=== PATIENT | male | born 1940 | race Caucasian/White ===

== ENCOUNTER 2019-05-10 00:09 | Day surgery (SDC) | payer MEDICARE, SELFPAY ==
[2019-05-09 15:05] VITALS: BMI 34.0
[2019-05-10 07:05] VITALS: BP 145/79; PULSE 66; RESP 16; TEMP 36.2; O2SAT 94
--- NOTE | 2019-05-10 07:11 | WPDANESEPPF ---
Anes - Initial Pre Proc Eval Procedure: Operation Date: 05/10/19 08:00 Proposed Procedures p Screening Colonoscopy - Jitendra Ayala MD Date/Time: 05/10/19 07:11 Surgeon: Jitendra Ayala MD Pre Op Diagnosis: Neoplasm Screening Patient Data Age: 78 Gender: M Height: 1.75 m Weight: 104.5 kg Last Vital Signs Temp 36.2 C L 05/10/19 07:05 Pulse 66 05/10/19 07:05 Resp 16 05/10/19 07:05 BP 145/79 H 05/10/19 07:05 Pulse Ox 94 05/10/19 07:05 Allergies Allergy/AdvReac Type Severity Reaction Status Date / Time No Known Allergies Allergy Verified 05/10/19 07:03 Home Medications Medication Instructions Recorded Confirmed Type atorvastatin 20 mg tablet 20 mg PO DAILY 02/05/19 05/09/19 History fluticasone propionate 50 2 spray NASAL DAILY #18.2 ml 02/05/19 05/09/19 Rx mcg/actuation nasal spray,suspension glipizide 5 mg tablet 5 mg PO BID 02/05/19 05/09/19 History metformin 500 mg tablet 2,000 mg PO HS 02/05/19 05/09/19 History famotidine 20 mg tablet 20 mg PO BID #60 tablet 02/23/19 05/09/19 Rx peg 3350-electrolytes 236 240 ml PO Q10M #4000 ml 04/03/19 Rx gram-22.74 gram-6.74 gram-5.86 gram solution lisinopril 10 mg PO DAILY 05/09/19 05/09/19 History Patient hx anesthesia problems: none Family hx anesthesia problems: none PMFSH Past Medical History Medical History (Updated 04/06/19 @ 09:56 by Cammy Carson DO) Chronic GERD COPD with asthma Dyslipidemia Type 2 diabetes mellitus with microalbuminuria, without long-term current use of insulin Social History Social History Smoking status: Never smoker Smoking end date: 02/28/06 Alcohol intake: never Substance use: never Substance use type: does not use Gender identity (if verbalized by the patient): Male Spiritual care concerns: No Agree to blood products: Yes Anes - Eval Final PreProcedure Day of Procedure 05/10/19 07:11 Patient weight: obese Heart: regular rate and rhythm Lungs: clear to auscultation and normal air movement Airway: Mallampati scale class II Neurological: alert and oriented Last oral intake: >/= 8 hours ASA classification: III Emergent: no Anesthetic plan: proceed Anesthesia type and monitoring: general GIVS and standard monitoring Informed Consent: The patient's anesthetic plan and its attendant risks and benefits were discussed with the patient/family/POA. Questions were solicited and answers provided to the satisfaction of the patient/family/POA.
[2019-05-10] MEDS: LACTATED RINGERS 1,000 ML 150 ML IV CONT (07:21)
[2019-05-10 07:28] LABS: Glucose Point of Care 165 (65-105)
--- NOTE | 2019-05-10 08:07 | PM.HPGS ---
History of Present Illness History of Present Illness Consent: Risks, benefits, and alternatives have been discussed and questions answered. Patient agrees to proceed with procedure. Chief complaint: Neoplasm Screening Narrative: Reagan Akins is a 78 year old male here for screening colonoscopy, last one about 10 years ago or longer Review of Systems Constitutional: Constitutional: Denies headache(s) and Denies weakness Eyes: Eyes: Denies blurry vision ENT: Reports Normal hearing present, Denies headache(s) and Denies neck pain Cardiovascular: Cardiovascular: Denies chest pain and Denies dyspnea Respiratory: Respiratory: Denies dyspnea Gastrointestinal: Gastrointestinal: Reports no additional gastrointestinal complaints Genitourinary: Genitourinary: Denies dysuria Musculoskeletal: Musculoskeletal: Denies neck pain Integumentary/Breasts: Skin/Breast: Denies dry skin Neurologic: Reports Normal hearing present, Denies headache(s) and Denies weakness Psychiatric: Psychiatric: Denies anxiety Endocrine: Endocrine: Denies change in body appearance Hematologic/Lymphatic: Hematologic/Lymphatic: Denies easy bleeding Allergic/Immunologic: Allergic/Immunologic: Denies urticaria PMF Past Medical History Medical History (Updated 04/06/19 @ 09:56 by Cammy Carson DO) Chronic GERD COPD with asthma Dyslipidemia Type 2 diabetes mellitus with microalbuminuria, without long-term current use of insulin Social History Social History Smoking status: Never smoker Smoking end date: 02/28/06 Alcohol intake: never Substance use: never Substance use type: does not use Gender identity (if verbalized by the patient): Male Spiritual care concerns: No Agree to blood products: Yes Meds Home Medications and Allergies Home Medications Medication Instructions Recorded Confirmed Type atorvastatin 20 mg tablet 20 mg PO DAILY 02/05/19 05/09/19 History fluticasone propionate 50 2 spray NASAL DAILY #18.2 ml 02/05/19 05/09/19 Rx mcg/actuation nasal spray,suspension glipizide 5 mg tablet 5 mg PO BID 02/05/19 05/09/19 History metformin 500 mg tablet 2,000 mg PO HS 02/05/19 05/09/19 History famotidine 20 mg tablet 20 mg PO BID #60 tablet 02/23/19 05/09/19 Rx peg 3350-electrolytes 236 240 ml PO Q10M #4000 ml 04/03/19 Rx gram-22.74 gram-6.74 gram-5.86 gram solution lisinopril 10 mg PO DAILY 05/09/19 05/09/19 History Allergies Allergy/AdvReac Type Severity Reaction Status Date / Time No Known Allergies Allergy Verified 05/10/19 07:03 Vital Signs Vital Signs - 24 hr 05/10/19 07:05 Temperature 97.2 F L Pulse Rate 66 Respiratory Rate 16 Blood Pressure 145/79 H Pulse Oximetry 94 Exam Const: General: comfortable and no acute distress HENMT: General nose exam: Normal nares present Eyes: General: appearance normal, both eyes and all related structures Neck: Neck: no JVD Resp: Auscultation: clear to auscultation bilaterally Cardio: Rate: regular rate Rhythm: regular rhythm GI: Inspection: non-distended GI Palp: Yes Soft to palpation Skin: General skin exam: normal color Neuro: General: gait normal Speech: normal speech Extrem: General: normal to inspection Psych: Mental Status: mental status grossly normal Assessment and Plan Assessment and plan (1) Screening for colon cancer: Code(s): Z12.11 - Encounter for screening for malignant neoplasm of colon Status: Acute Assessment and Plan: will proceed with colonoscopy (2) Type 2 diabetes mellitus with microalbuminuria, without long-term current use of insulin: Code(s): E11.29 - Type 2 diabetes mellitus with other diabetic kidney complication; R80.9 - Proteinuria, unspecified Status: Acute
[2019-05-10 08:31] VITALS: BP 113/69; PULSE 54; RESP 16; O2SAT 97
[2019-05-10 08:41] VITALS: BP 126/73; PULSE 57; RESP 16; O2SAT 96
[2019-05-10 08:51] VITALS: BP 140/64; PULSE 65; RESP 16; O2SAT 98
== END 2019-05-10 08:57 | disposition home or self-care (01) ==
PROVIDERS: PCP Family Medicine; Visit Provider Internal Medicine Gastroenterology
PROC: 0DJD8ZZ Inspection of Lower Intestinal Tract, Via Natural or Artificial Opening Endoscopic (ICD-10-PCS; CPT 45378; principal; 2019-05-10 08:00)
DX: Z12.11 Encounter for screening for malignant neoplasm of colon (principal); D12.0 Benign neoplasm of cecum; D12.8 Benign neoplasm of rectum; K57.30 Diverticulosis of large intestine without perforation or abscess without bleeding; E11.69 Type 2 diabetes mellitus with other specified complication; Z79.84 Long term (current) use of oral hypoglycemic drugs; R80.9 Proteinuria, unspecified; E78.5 Hyperlipidemia, unspecified; J44.9 Chronic obstructive pulmonary disease, unspecified; K21.9 Gastro-esophageal reflux disease without esophagitis; E66.9 Obesity, unspecified; Z68.34 Body mass index [BMI] 34.0-34.9, adult
CPT/HCPCS: 45385; 88305; J2704; J7120

== ENCOUNTER 2019-06-04 15:19 | Emergency (ER) | payer MEDICARE, SELFPAY ==
--- NOTE | ~2019-06-04 | XR_ITS ---
EXAMINATION: XR chest 1V portable INDICATION: Shortness of breath and fever TECHNIQUE: Portable AP chest at 1540 hours COMPARISON: 04/18/2018, 04/04/2017 FINDINGS: The lungs are free of acute opacities. There is no pleural effusion or pneumothorax. The ca rdiomediastinal silhouette is normal. IMPRESSION: 1. No acute cardiopulmonary abnormality. Reviewed, dictated and finalized at location A.
[2019-06-04 15:25] VITALS: BP 161/97; PULSE 69; RESP 20; TEMP 36.8; O2SAT 97
[2019-06-04 15:31] VITALS: PULSE 67
--- NOTE | 2019-06-04 15:32 | ECG_ITS ---
Measurements Intervals [place] Rate: 66 P: 52 MN: 171 QRS: 12 QRSD: 116 T: 29 QT: 413 QTc: 434 Interpretive Statements SINUS RHYTHM VENTRICULAR PREMATURE COMPLEX INTRAVENTRICULAR CONDUCTION DELAY BORDERLINE T WAVE ABNORMALITY- INFERIOR LEADS BORDERLINE ECG Electronically Signed On 06-04-2019 19:12:51 CDT by Jah Ambrose D.O.
--- NOTE | 2019-06-04 15:32 | ED.SOB ---
HPI - SOB/Dyspnea General Chief Complaint: Shortness of Breath/Dyspnea Stated Complaint: fever, shaking, eye twitching, short of breath. Time Seen by Provider: 06/04/19 15:26 Source: patient Mode of arrival: ambulatory Limitations: no limitations History of Present Illness HPI Narrative: Patient is a 78 year old male who presents to the emergency department with complaints of shortness of breath that started today. Patient reports a fever of 103F that started at 11AM but it went away. He also reports trouble urinating today and feeling gassy. He denies having abdominal pain but states that his lower abdomen was irritating him and burning. Patient reports feeling lightheaded and almost passed out. He states that he had an episode yesterday and today that lasted 1-1.5 hours ago. He got better when he sat down and took a nap. Patient denies having any sores but he reports that he has a cut on his right hand that he got on Tuesday (3 days ago). He does not use any inhalers at home and uses a nasal spray twice a day. Patient notes that he has a history of pneumonia but states that he has never been intubated. He denies a history of congestive heart failure and states that he does not normally have ankle swelling. Patient quit smoking 15 years ago and he quit drinking 10 years ago. He has a surgical history of bilateral rotator cuff surgery, bilateral hip replacements, and a neck fusion. 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 MD elicited complaint: shortness of breath Onset (ago): day(s) (today) Timing: constant Associated symptoms: fever (103F), syncope (near), lightheadedness and other (lower abdominal burning) Related Data Home Medications Medication Instructions Recorded Confirmed atorvastatin 20 mg tablet 20 mg PO DAILY 02/05/19 05/09/19 glipizide 5 mg tablet 5 mg PO BID 02/05/19 05/09/19 metformin 500 mg tablet 2,000 mg PO HS 02/05/19 05/09/19 Allergies Allergy/AdvReac Type Severity Reaction Status Date / Time No Known Allergies Allergy Verified 06/04/19 15:34 Review of Systems Review of Systems: All systems reviewed & are unremarkable except as noted in HPI and below Constitutional: Constitutional: Reports fever(s) (103F) Cardiovascular: Cardiovascular: Reports lightheadedness Respiratory: Respiratory: Reports dyspnea Gastrointestinal: Gastrointestinal: Denies abdominal pain and Reports other (lower abdominal burning and irritation, gassy) Genitourinary: Genitourinary: Reports other (trouble urinating) Neurologic: Reports syncope (near) [facility] Past Medical History Medical History (Updated 06/04/19 @ 17:47 by Regine Bloom MD) Chronic GERD COPD with asthma Dyslipidemia Type 2 diabetes mellitus with microalbuminuria, without long-term current use of insulin Surgical History Surgical History (Updated 06/04/19 @ 16:07 by Bianca Cm) H/O bilateral hip replacements H/O cervical spinal arthrodesis H/O repair of rotator cuff bilaterally Social History Social History (Updated 06/04/19 @ 16:08 by Bianca Cm) Smoking status: Former smoker Smoking end date: 02/28/06 Alcohol intake: former Substance use: never Substance use type: does not use Living arrangements: with family Gender identity (if verbalized by the patient): Male Spiritual care concerns: No Agree to blood products: Yes Exam Const: Orientation/consciousness: patient oriented x3 (alert) Eyes: General: appearance normal, both eyes and all related structures (blue) Resp: Effort & Inspection: normal respiratory effort Auscultation: clear to auscultation bilaterally and no wheezes Cardio: Jugular venous distension: no JVD Rate: regular rate Rhythm: regular rhythm Heart sounds: no murmurs Peripheral pulses: radial pulses present GI: GI Palp: No abdominal tenderness Skin: Trauma: laceration (1/2 inch cut with scab and no erythema surrounding) Neuro: General: patient oriented
[2019-06-04 15:44] LABS: Basophils Percent Auto 0.3 % (0.2-1.2); Eosinophils Absolute Auto 0.1 K/mm3 (0-0.3); Eosinophils Percent Auto 1.2 % (0-4.4); Hematocrit 41.3 % (42.0-52.0); Hemoglobin 13.7 g/dL (14.0-18.0); Immature Granulocyte Absolute 0.09 K/mm3 (0.00-0.031); Immature Granulocyte Percent A 1.4 % (0-0.5); Lymphocytes Absolute Auto 1.41 K/mm3 (0.9-3.2); Lymphocytes Percent Auto 21.5 % (18.3-44.2); Mean Corpuscular HGB Conc 33.2 g/dl (32-36); Mean Corpuscular Hemoglobin 31.4 pg (26-34); Mean Corpuscular Volume 94.7 fl (80-100); Mean Platelet Volume 10.3 fl (7.4-10.4); Monocytes Absolute Auto 0.5 K/mm3 (0.1-0.6); Monocytes Percent Auto 7.6 % (2.6-8.5); Neutrophils Absolute Auto 4.5 K/mm3 (1.3-6.7); Platelet Count Result 196 k/mm3 (150-375); Red Blood Count 4.36 M/mm3 (4.6-6.20); Red Cell Distribution Width 13.2 % (11.5-14.5); White Blood Count 6.6 K/mm3 (4.5-10.0)
[2019-06-04 15:55] LABS: Potassium 4.7 mmol/L (3.4-5.0)
[2019-06-04 16:01] LABS: Blood Urea Nitrogen 19 mg/dL (9-20); Calcium 9.3 mg/dL (8.4-10.2); Carbon Dioxide 27 mmol/L (22-30); Chloride 107 mmol/L (98-107); Estimated CRCL calculation 70 ml/min; Estimated Glomerular Filt Rate > 60; Glucose 283 mg/dL (75-110); Sodium 139 mmol/L (137-145)
--- NOTE | 2019-06-04 16:31 | PC.NURSE ---
PT FRIEND AT [facility]TA[facility] STATES HE CAN TAKE PT HOME IF NEED BE: KUNAL [phone].
[2019-06-04 16:36] VITALS: BP 117/66; PULSE 60; RESP 21; O2SAT 96
[2019-06-04 16:38] LABS: Add Urine Microscopic? YES; Appearance Urine Clear (Clear); Bilirubin Urine Negative (Negative); Blood Urine Negative (Negative); Color Urine Yellow (Yellow); Glucose Urine UA 3+ mg/dL (Negative); Ketones Urine Trace mg/dL (Negative); Leukocyte Esterase Ur Negative LEU/UL (Negative); Mucus Urine Rare /lpf; Nitrate Urine Negative (Negative); Protein Urine 1+ mg/dL (Negative); RBC Urine 0-2 /hpf (0-2); Specific Grav Ur 1.021 (1.001-1.035); Squamous Epithelial Cell Urine Rare /hpf (Few); Urobilinogen Urine Negative mg/dL (<2.0); WBC Urine 0-3 /hpf
[2019-06-04 16:49] LABS: Lactic Acid 1.6 mmol/L (0.7-2.1)
[2019-06-04 16:49] LABS: NT Pro B Type Natriuretic Pept 380 PG/ML (5-100); Troponin I < 0.012 ng/mL (0.000-0.034)
[2019-06-04] MEDS: FUROSEMIDE INJ 40 MG/4 ML VIAL IV PUSH (17:14)
[2019-06-04 17:15] VITALS: BP 149/77; PULSE 60; RESP 15; O2SAT 96
[2019-06-04 17:58] VITALS: BP 143/91; PULSE 67; RESP 19; O2SAT 98
== END 2019-06-04 18:00 | disposition home or self-care (01) ==
PROVIDERS: Emergency Provider Emergency Medicine; PCP Family Medicine
DX: I50.9 Heart failure, unspecified (principal); E11.65 Type 2 diabetes mellitus with hyperglycemia; R55 Syncope and collapse; R50.81 Fever presenting with conditions classified elsewhere; K21.9 Gastro-esophageal reflux disease without esophagitis; E78.5 Hyperlipidemia, unspecified; E11.69 Type 2 diabetes mellitus with other specified complication; Z79.84 Long term (current) use of oral hypoglycemic drugs; R80.9 Proteinuria, unspecified; Z87.891 Personal history of nicotine dependence; Z96.643 Presence of artificial hip joint, bilateral; Z98.1 Arthrodesis status; I49.3 Ventricular premature depolarization; I45.9 Conduction disorder, unspecified; R94.31 Abnormal electrocardiogram [ECG] [EKG]
CPT/HCPCS: 36415; 71045; 80048; 81001; 83605; 83880; 84484; 85025; 87040; 93005; 96374; 99284; J1940

== ENCOUNTER 2019-07-03 07:48 | Outpatient (CLI) | payer MEDICARE, SELFPAY ==
--- NOTE | 2019-07-03 08:00 | ECHO_ITS ---
Patient Info Name: Reagan Akins Age: 79 years : 1940 Gender: Male Ht: 69 in Wt: 205 lbs BSA: 2.15 m2 HR: 61 bpm BP: 124 / 79 mmHg Technical Quality: Fair Exam Date: 07/03/2019 8:08 AM Exam Location: [facility] Patient Status: Outpatient Admit Date: 07/03/2019 Staff Ordering Physician: Cammy Carson DO Alcohol And Drug Counselor: Ifeoma Shepherd RDCS Attending Provider: Cammy Carson DO Referring Physician: Yamileth GARCIA; Exam Type: CA echo doppler color flow Study Info Indications R60.9 - Edema, unspecified Complete two-dimensional, color flow and Doppler transthoracic echocardiogram is performed. Summary 1. Left ventricular chamber dimension is normal. 2. Left ventricular systolic function is normal, estimated at 55-60%. 3. The left ventricular diastolic function is grade I diastolic dysfunction. 4. E/e' 6 is not elevated. 5. There is moderate aortic valve sclerosis. 6. The mitral valve has moderately calcified annulus. 7. There is trace mitral valve regurgitation. 8. No pulmonary hypertension, estimated pulmonary arterial systolic pressure is 24 mmHg. 9. There is mild pulmonic regurgitation. Left Ventricle E/e' 6 is not elevated. Left ventricular chamber dimension is normal. Left ventricular systolic function is normal, estimated at 55-60%. The left ventricular diastolic function is grade I diastolic dysfunction. Right Ventricle Right ventricular chamber dimension is normal. Right ventricular systolic function is normal. Left Atria Left atrial chamber dimension is normal. Right Atria Right atrial chamber dimension is normal. Aortic Valve The aortic valve is trileaflet. There is moderate aortic valve sclerosis. There is no aortic valve stenosis. There is no aortic valve regurgitation. Pulmonic Valve There is mild pulmonic regurgitation. Mitral Valve The mitral valve has moderately calcified annulus. There is no mitral valve stenosis. There is trace mitral valve regurgitation. Tricuspid Valve There is no tricuspid valve regurgitation. No pulmonary hypertension, estimated pulmonary arterial systolic pressure is 24 mmHg. Pericardium/Pleural There is no pericardial effusion. Inferior Vena Cava Normal inferior vena cava with >50% collapse upon inspiration consistent with normal right atrial pressure, 5 mmHg. Aorta The aortic root size at the sinus of Valsalva is normal. Left Ventricular Outflow Tract Name Value Normal LVOT 2D LVOT Diameter 2.0 cm LVOT Doppler LVOT Peak Velocity 143 cm/s LVOT Peak Gradient 8 mmHg LVOT Mean Gradient 5 mmHg LVOT VTI 30 cm LVOT VTI/AV VTI Ratio 1.0 LVOT Stroke Volume 94 ml LVOT CO 5.9 l/min LVOT CI 2.7 l/min/m2 Pulmonic Valve Name Value Normal
[2019-07-03 08:24] LABS: Alanine Aminotransferase 19 U/L (4-50); Albumin Level 4.5 g/dL (3.5-5.1); Alkaline Phosphatase 65 U/L (38-126); Aspartate Amino Transferase 24 U/L (17-59); Bilirubin,Total 0.5 mg/dL (0.2-1.3); Blood Urea Nitrogen 21 mg/dL (9-20); Calcium 9.3 mg/dL (8.4-10.2); Carbon Dioxide 24 mmol/L (22-30); Chloride 108 mmol/L (98-107); Estimated Glomerular Filt Rate > 60; Glucose 262 mg/dL (75-110); Potassium 4.7 mmol/L (3.4-5.0); Sodium 139 mmol/L (137-145)
== END 2019-07-03 07:49 | disposition home or self-care (01) ==
PROVIDERS: PCP Family Medicine; Visit Provider Family Medicine
DX: R60.9 Edema, unspecified (principal); E11.29 Type 2 diabetes mellitus with other diabetic kidney complication; R80.9 Proteinuria, unspecified; E78.5 Hyperlipidemia, unspecified
CPT/HCPCS: 36415; 80053; 83036; 84443; 93306

== ENCOUNTER 2019-10-17 09:40 | Emergency (ER) | payer MEDICARE, SELFPAY ==
[2019-10-17 09:51] VITALS: BP 130/63; PULSE 77; RESP 18; TEMP 36.6; O2SAT 98
--- NOTE | 2019-10-17 09:56 | ED.GENADULT ---
HPI - General Adult General Chief complaint: Nausea/Vomiting/Diarrhea Stated complaint: CONSTIPATION Time Seen by Provider: 10/17/19 09:51 Source: patient Mode of arrival: ambulatory Limitations: no limitations and other (Little hard of hearing) History of Present Illness HPI narrative: Patient presents with dizziness and lightheadedness. He had an event 3 days ago where he ate at a restaurant and thinks he had food poisoning. He only ate 1 of the 2 pork chop. Then he had severe bloating and abdominal discomfort. Yesterday he took some orange laxatives, and had profound diarrhea with it. The bloating and abdominal pain resolved. Now he feels dizzy and lightheaded. He has a history of borderline hypertension. Once his doctor tried a blood pressure pill but it bottomed out. He has type 2 diabetes which he takes oral medication to control. He has had surgery on both shoulders replacements on both hips and cervical fusion. Does not smoke cigarettes, does not drink alcohol, does not do drugs. Onset (ago): day(s) Location: head Radiation: non-radiation Severity: moderate Related Data Home Medications Medication Instructions Recorded Confirmed metformin 500 mg tablet 2,000 mg PO HS 02/05/19 05/09/19 furosemide 40 mg tablet 40 mg PO .QOD tablet 06/28/19 06/28/19 Allergies Allergy/AdvReac Type Severity Reaction Status Date / Time No Known Allergies Allergy Verified 10/17/19 09:56 Review of Systems Review of Systems: Narrative: CONSTITUTIONAL: Denies fever, chills, or sweats. ENT: Denies rhinorrhea, congestion, sore throat, or otalgia. CARDIOVASCULAR: Denies chest pain, palpitations, or edema. RESPIRATORY: Denies cough or dyspnea. GASTROINTESTINAL: He had abdominal pain, nausea, diarrhea. SKIN: Denies rash or itching. MUSCULOSKELETAL: Denies back pain, joint pain, or myalgia. NEUROLOGIC: Denies headache, numbness, or weakness. Just dizzy. All systems reviewed & are unremarkable except as noted in HPI and below PMFSH Past Medical History Medical History CHF (congestive heart failure) Chronic GERD COPD with asthma Dyslipidemia Type 2 diabetes mellitus with microalbuminuria, without long-term current use of insulin Surgical History Surgical History H/O bilateral hip replacements H/O cervical spinal arthrodesis H/O repair of rotator cuff bilaterally Social History Social History Smoking status: Former smoker Smoking end date: 02/28/06 Alcohol intake: former Substance use: never Substance use type: does not use Gender identity (if verbalized by the patient): Male Spiritual care concerns: No Agree to blood products: Yes Exam Narrative: Exam Narrative: GENERAL: Well-appearing, well-nourished, and in no acute distress. Little hard of hearing. HEAD: Normocephalic, atraumatic. EYES: PERRLA and EOMI. ENT: Nares clear, no rhinorrhea or epistaxis. Mucous membranes moist. NECK: Supple. CHEST: Clear to auscultation. No respiratory distress. HEART: Regular rate and rhythm. No murmur heard. Normal peripheral pulses. ABDOMEN: Soft, nontender, nondistended, normal active bowel sounds. EXTREMITIES: Normal range of motion. No edema. SKIN: Warm, dry, no rash. NEURO: No focal deficits. Alert and oriented x3. PSYCH: Normal mood and affect. Course Reevaluation(s) Reevaluation #1: Patient is much improved and is ready to go home Date: 10/17/19 Time: 14:33 Vital Signs Vital signs: Vital Signs Temperature 97.9 F 10/17/19 09:51 Pulse Rate 77 10/17/19 09:51 Respiratory Rate 18 10/17/19 09:51 Blood Pressure 130/63 10/17/19 09:51 Pulse Oximetry 98 10/17/19 09:51 Temperature 97.8 F 10/17/19 14:41 Pulse Rate 87 10/17/19 14:41 Respiratory Rate 18 10/17/19 14:41 Blood Pressure 129/74 10/17/19 14:41 Pulse Oximetry
[2019-10-17] MEDS: SODIUM CHLORIDE 0.9% IV 1,000 ML 999 ML IV CONT (09:59)
[2019-10-17 10:08] LABS: Basophils Percent Auto 0.2 % (0.2-1.2); Eosinophils Percent Auto 0.2 % (0-4.4); Hematocrit 43.1 % (42.0-52.0); Hemoglobin 14.4 g/dL (14.0-18.0); Immature Granulocyte Absolute 0.05 K/mm3 (0.00-0.031); Immature Granulocyte Percent A 0.9 % (0-0.5); Lymphocytes Absolute Auto 1.03 K/mm3 (0.9-3.2); Lymphocytes Percent Auto 18.1 % (18.3-44.2); Mean Corpuscular HGB Conc 33.4 g/dl (32-36); Mean Corpuscular Hemoglobin 31.4 pg (26-34); Mean Corpuscular Volume 94.1 fl (80-100); Mean Platelet Volume 9.6 fl (7.4-10.4); Monocytes Absolute Auto 0.7 K/mm3 (0.1-0.6); Neutrophils Absolute Auto 3.9 K/mm3 (1.3-6.7); Neutrophils Percent Auto 67.6 % (45.5-73.1); Platelet Count Result 151 k/mm3 (150-375); Red Blood Count 4.58 M/mm3 (4.6-6.20); Red Cell Distribution Width 13.2 % (11.5-14.5); White Blood Count 5.7 K/mm3 (4.5-10.0)
[2019-10-17 10:20] LABS: Alanine Aminotransferase 21 U/L (4-50); Albumin Level 4.6 g/dL (3.5-5.1); Alkaline Phosphatase 71 U/L (38-126); Anion Gap 10 mmol/L (8-16); Aspartate Amino Transferase 27 U/L (17-59); Bilirubin,Total 0.4 mg/dL (0.2-1.3); Blood Urea Nitrogen 23 mg/dL (9-20); Carbon Dioxide 23 mmol/L (22-30); Chloride 104 mmol/L (98-107); Estimated CRCL calculation 52 ml/min; Estimated Glomerular Filt Rate > 60; Glucose 134 mg/dL (75-110); Lipase 90 U/L (23-300); Potassium 4.7 mmol/L (3.4-5.0); Sodium 137 mmol/L (137-145)
[2019-10-17 10:30] VITALS: BP 115/65; PULSE 79
[2019-10-17 10:31] VITALS: BP 116/73; PULSE 87
[2019-10-17 10:33] VITALS: BP 126/65; PULSE 84
[2019-10-17 10:40] LABS: Add Urine Microscopic? YES; Appearance Urine Clear (Clear); Bilirubin Urine Negative (Negative); Blood Urine Negative (Negative); Color Urine Yellow (Yellow); Glucose Urine UA Negative (Negative); Ketones Urine Trace mg/dL (Negative); Leukocyte Esterase Ur 3+ LEU/UL (Negative); Mucus Urine Rare /lpf; Nitrate Urine Negative (Negative); Protein Urine Negative (Negative); Specific Grav Ur 1.019 (1.001-1.035); Squamous Epithelial Cell Urine Occasional /hpf (Few); Transitional Epi Cells Urine Rare /hpf (None Seen); Urobilinogen Urine Negative mg/dL (<2.0); WBC Urine 51-75 /hpf
[2019-10-17 13:40] VITALS: BP 136/74; PULSE 78; RESP 18; O2SAT 96
[2019-10-17 14:41] VITALS: BP 129/74; PULSE 87; RESP 18; TEMP 36.6; O2SAT 96
== END 2019-10-17 14:42 | disposition home or self-care (01) ==
PROVIDERS: Emergency Provider Emergency Medicine; PCP Family Medicine
DX: R42 Dizziness and giddiness (principal); Z87.891 Personal history of nicotine dependence; I50.9 Heart failure, unspecified; K21.9 Gastro-esophageal reflux disease without esophagitis; J44.9 Chronic obstructive pulmonary disease, unspecified; E78.5 Hyperlipidemia, unspecified; E11.9 Type 2 diabetes mellitus without complications; Z96.643 Presence of artificial hip joint, bilateral; Z79.84 Long term (current) use of oral hypoglycemic drugs
CPT/HCPCS: 36415; 80053; 81001; 83690; 85025; 87086; 87088; 99283; J7030

== ENCOUNTER 2019-10-18 10:06 | Emergency (ER) | payer MEDICARE, SELFPAY ==
--- NOTE | ~2019-10-18 | CT_ITS ---
EXAMINATION: CT abdomen pelvis w con EXAM DATE: 10/18/2019 11:31 INDICATION: Acute diverticulitis, left lower quadrant pain, symptoms one month. TECHNIQUE: Spiral CT of the abdomen and pelvis was performed following intravenous injection of 100 m L Omnipaque 350. Axial, coronal and sagittal images were reviewed. The dose-length product (DLP) fo r this examination was 1047.00 mGy-cm. The exposure was tailored according to patient size (auto mA exposure control), and iterative reconstruction (ASIR) was used as additional dose reduction techniqu e. Comparison is made to prior examination from 10/11/2013. FINDINGS: The liver, spleen, adrenal glands and pancreas are unremarkable. There are gallstones with in an otherwise unremarkable gallbladder. No evidence of obstructive biliary disease. Portal and sp lenic veins are patent. Kidneys enhance symmetrically. There is no hydronephrosis. The prostate a nd bladder are poorly visualized due to hip arthroplasties There is no retroperitoneal or pelvic lym phadenopathy. There is moderate scattered arteriosclerotic disease. Small bilateral renal cysts. The appendix is normal. The stomach and small bowel are unremarkable. There is expected amount of c olonic stool. There is mild scattered colonic diverticulosis. There is no adjacent inflammatory eric ge to suggest diverticulitis. No free intraperitoneal gas. The heart is normal in size. There are no pericardial or pleural effusions. There is increased right basilar reticulation, thickened inter lobular septa, with focal more confluent nodular region measuring 12 mm, could be infectious or posti nfectious but new compared to prior study and cancer should be excluded. This abuts the diaphragm; pe rcutaneous biopsy cannot be safely performed. There are no osteoblastic or osteolytic lesions identi fied. small bilateral inguinal fat-containing hernias. There is small umbilical fat-containing hernia . IMPRESSION: 1. New right lower lobe pleural-based nodular density, infectious, post infectious or possibly small cancer. Adjacent interlobular septal thickening. Consider PET/CT or 3 month follow-up low-dose chest CT. 2. Mild colonic diverticulosis. 3. Small fat-containing hernias. 4. Cholelithiasis. Reviewed, dictated and finalized at location B. IMPRESSION: 1. New right lower lobe pleural-based nodular density, infectious, post infect ious or possibly small cancer. Adjacent interlobular septal thickening. Conside r PET/CT or 3 month follow-up low-dose chest CT. 2. Mild colonic diverticulosis. 3. Small fat-containing hernias. 4. Cholelithiasis.
[2019-10-18 10:15] VITALS: BP 129/55; PULSE 84; RESP 18; TEMP 36.2; O2SAT 96
--- NOTE | 2019-10-18 10:44 | ED.ABDPAIN ---
HPI - Abdominal Pain General Chief Complaint: Abdominal Pain Stated Complaint: abd pain, constipated Time Seen by Provider: 10/18/19 10:44 Source: patient Mode of arrival: ambulatory History of Present Illness HPI narrative: 79 years old white male presents with left lower quadrant pain since September 21 after lifting heavy brisket. Last bowel movement was yesterday. Patient denies any fever, chills, nausea, vomiting, aggravating or relieving factors. Also denies any urinary symptoms. MD elicited complaint: abdominal pain Related Data Home Medications Medication Instructions Recorded Confirmed metformin 500 mg tablet 2,000 mg PO HS 02/05/19 05/09/19 furosemide 40 mg tablet 40 mg PO .QOD tablet 06/28/19 06/28/19 Allergies Allergy/AdvReac Type Severity Reaction Status Date / Time No Known Allergies Allergy Verified 10/17/19 09:56 Review of Systems Review of Systems: Narrative: CONSTITUTIONAL: Denies fever, chills, or sweats. EYES: Denies visual changes, redness, or discharge. ENT: Denies rhinorrhea, congestion, sore throat, or otalgia. CARDIOVASCULAR: Denies chest pain, palpitations, or edema. RESPIRATORY: Denies cough or dyspnea. GASTROINTESTINAL: Denies abdominal pain, nausea, vomiting, or diarrhea. GENITOURINARY: Denies dysuria or hematuria. SKIN: Denies rash or itching. MUSCULOSKELETAL: Denies back pain, joint pain, or myalgia. NEUROLOGIC: Denies headache, numbness, or weakness. PSYCHIATRIC: Denies anxiety or depression. [facility] Past Medical History Medical History CHF (congestive heart failure) Chronic GERD COPD with asthma Dyslipidemia Type 2 diabetes mellitus with microalbuminuria, without long-term current use of insulin Surgical History Surgical History H/O bilateral hip replacements H/O cervical spinal arthrodesis H/O repair of rotator cuff bilaterally Family History Family History Father Family history of cardiovascular disease Social History Social History Smoking status: Former smoker Smoking end date: 02/28/06 Alcohol intake: former Substance use: never Substance use type: does not use Gender identity (if verbalized by the patient): Male Spiritual care concerns: No Agree to blood products: Yes Exam Narrative: Exam Narrative: General appearance: Well-developed, well-nourished Skin: Normal color Head: Normocephalic, nontraumatic Eyes: Clear conjunctiva ENT: Oropharynx normal, ears normal, nose normal Neck: Supple, nontender Chest and respiratory: Airway patent, no respiratory distress, no accessory muscle use Heart: Regular rate/rhythm Abdomen: Soft, nontender, no organomegaly, quiet bowel sounds, no hernia, left lower quadrant tenderness with deep palpation Vascular: Normal peripheral pulses, normal capillary refill. Musculoskeletal: Normal range of motion, nontender back Neurologic: Alert and oriented ?3, GENERATION MANAGER is normal as tested, no gross motor deficit Course Course Emergency Course: Improving Vital Signs Vital signs: Vital Signs Temperature 36.2 C L 10/18/19 10:15 Pulse Rate 84 10/18/19 10:15 Respiratory Rate 18 10/18/19 10:15 Blood Pressure 129/55 L 10/18/19 10:15 Pulse Oximetry 96 10/18/19 10:15 Temperature 36.2 C L 10/18/19 10:15 Pulse Rate 84 10/18/19 10:15 Respiratory Rate 18 10/18/19 10:15 Blood Pressure 129/55 L 10/18/19 10:15 Pulse Oximetry 96 10/18/19 10:15 MDM - Abdominal Pain MDM Narrative Medical decision making narrative: Jv
[2019-10-18] MEDS: SODIUM CHLORIDE 0.9% IV 1,000 ML 999 ML IV CONT (11:09)
[2019-10-18 11:17] LABS: Eosinophils Percent Auto 0.2 % (0-4.4); Hemoglobin 13.3 g/dL (14.0-18.0); Immature Granulocyte Absolute 0.04 K/mm3 (0.00-0.031); Immature Granulocyte Percent A 0.9 % (0-0.5); Immature Platelet Fraction Pct 1.6 % (0.9-11.2); Lymphocytes Absolute Auto 0.77 K/mm3 (0.9-3.2); Lymphocytes Percent Auto 17.1 % (18.3-44.2); Mean Corpuscular HGB Conc 34.1 g/dl (32-36); Mean Corpuscular Hemoglobin 31.7 pg (26-34); Mean Corpuscular Volume 93.1 fl (80-100); Mean Platelet Volume 9.4 fl (7.4-10.4); Monocytes Absolute Auto 0.6 K/mm3 (0.1-0.6); Monocytes Percent Auto 12.7 % (2.6-8.5); Neutrophils Absolute Auto 3.1 K/mm3 (1.3-6.7); Neutrophils Percent Auto 69.1 % (45.5-73.1); Platelet Count Result 156 k/mm3 (150-375); Red Blood Count 4.19 M/mm3 (4.6-6.20); Red Cell Distribution Width 12.9 % (11.5-14.5); White Blood Count 4.5 K/mm3 (4.5-10.0)
[2019-10-18 11:27] LABS: Alanine Aminotransferase 19 U/L (4-50); Albumin Level 4.1 g/dL (3.5-5.1); Alkaline Phosphatase 65 U/L (38-126); Anion Gap 9 mmol/L (8-16); Aspartate Amino Transferase 26 U/L (17-59); Bilirubin,Total 0.4 mg/dL (0.2-1.3); Blood Urea Nitrogen 18 mg/dL (9-20); Calcium 8.7 mg/dL (8.4-10.2); Carbon Dioxide 22 mmol/L (22-30); Chloride 102 mmol/L (98-107); Estimated CRCL calculation 52 ml/min; Estimated Glomerular Filt Rate > 60; Glucose 171 mg/dL (75-110); Lipase 87 U/L (23-300); Potassium 4.4 mmol/L (3.4-5.0); Sodium 133 mmol/L (137-145)
[2019-10-18 12:04] LABS: Add Urine Microscopic? YES; Appearance Urine Clear (Clear); Bilirubin Urine Negative (Negative); Blood Urine Negative (Negative); Color Urine Straw (Yellow); Glucose Urine UA Negative (Negative); Ketones Urine Negative (Negative); Leukocyte Esterase Ur 2+ LEU/UL (Negative); Mucus Urine Rare /lpf; Nitrate Urine Negative (Negative); Protein Urine Negative (Negative); RBC Urine 0-2 /hpf (0-2); Specific Grav Ur 1.029 (1.001-1.035); Squamous Epithelial Cell Urine Rare /hpf (Few); Urobilinogen Urine Negative mg/dL (<2.0); WBC Urine 21-30 /hpf
[2019-10-18 12:47] VITALS: BP 136/75; PULSE 77; RESP 18; O2SAT 97
--- NOTE | 2019-10-29 18:44 | PC.NURSE ---
LATE ENTRY This note is being entered to document information to the patient's record. The following information was omitted on [10/29/19], by [10/29/19 NS stopped at 1209 on 10/18/19].
== END 2019-10-18 12:51 | disposition home or self-care (01) ==
PROVIDERS: Emergency Provider Emergency Medicine; PCP Family Medicine
DX: R10.32 Left lower quadrant pain (principal); N39.0 Urinary tract infection, site not specified; R91.1 Solitary pulmonary nodule; I50.9 Heart failure, unspecified; K21.9 Gastro-esophageal reflux disease without esophagitis; J44.9 Chronic obstructive pulmonary disease, unspecified; E78.5 Hyperlipidemia, unspecified; Z79.84 Long term (current) use of oral hypoglycemic drugs; E11.9 Type 2 diabetes mellitus without complications; Z96.643 Presence of artificial hip joint, bilateral; Z98.1 Arthrodesis status; Z87.891 Personal history of nicotine dependence; K80.20 Calculus of gallbladder without cholecystitis without obstruction; K46.9 Unspecified abdominal hernia without obstruction or gangrene; K57.90 Diverticulosis of intestine, part unspecified, without perforation or abscess without bleeding
CPT/HCPCS: 36415; 74177; 80053; 81001; 83690; 85025; 85055; 87086; 87088; 96360; 99284; J7030; Q9967

== ENCOUNTER 2019-10-22 01:42 | Inpatient (IN) | payer MEDICARE, SELFPAY ==
[2019-10-22] VITALS (16 sets, daily range): BP systolic 109–140; BP diastolic 58–74; PULSE 62–102; RESP 20–28; TEMP 36.3–37.9; O2SAT 93–99; BMI 25.4
--- NOTE | ~2019-10-22 | XR_ITS ---
EXAMINATION: XR chest 1V portable EXAM DATE: 10/22/2019 03:54 INDICATION: CHF, COPD. Weakness. TECHNIQUE: Portable AP frontal chest x-ray was obtained. Comparison is made to prior examination from 06/04/2019. FINDINGS: There is bilateral indistinct reticulation. Small amount of right basilar airspace disease. Some indistinct reticulation, possible mild pulmonary edema. No sizable pleural effusion or pneumoth orax.. Cardiomediastinal silhouette is normal. There are mild bony degenerative changes. IMPRESSION: 1. Development of some indistinct reticulation, possible mild pulmonary edema. 2. New small right-sided opacity most consistent with atelectasis. Pneumonia not excludable. Reviewed, dictated and finalized at location B. IMPRESSION: 1. Development of some indistinct reticulation, possible mild pulmonary edema. 2. New small right-sided opacity most consistent with atelectasis. Pneumonia n ot excludable.
--- NOTE | ~2019-10-22 | XR_ITS ---
EXAMINATION: XR chest 1V portable DATE: 10/24/2019 06:29 INDICATION: Congestive heart failure. COVID-19 pneumonia. TECHNIQUE: A single frontal view of the chest was obtained. COMPARISON: Chest single view 10/23/2019, chest CT 10/22/2019 FINDINGS: There are mild patchy airspace opacities in all right lung zones. No pleural effusion or pn eumothorax. The heart size is normal. IMPRESSION: 1. Worsened mild patchy airspace opacities in all right lung zones, consistent with pneumonia. Reviewed, dictated and finalized at location B.
--- NOTE | ~2019-10-22 | XR_ITS ---
EXAMINATION: XR chest 1V portable DATE: 10/23/2019 08:17 INDICATION: Congestive heart failure. COVID-19 pneumonia. TECHNIQUE: A single frontal view of the chest was obtained. COMPARISON: Chest single view 10/22/2019, chest CT 10/22/2019 FINDINGS: There are reticular opacities in the mid and lower lung zones. No pleural effusion or pneum othorax. The heart size is normal. IMPRESSION: 1. Reticular opacities in the mid and lower lung zones with improvement on the right, consistent with mild pulmonary edema versus atypical pneumonia. Reviewed, dictated and finalized at location B.
--- NOTE | ~2019-10-22 | CT_ITS ---
EXAMINATION: CTA chest PE protocol DATE: 10/22/2019 19:56 CDT INDICATION: Shortness of breath. COPD. TECHNIQUE: Computed tomographic angiography (CTA) of the chest was performed with 100 mL Omnipaque-35 0 intravenous contrast. The dose-length product was 877.99 mGy-cm. Maximum intensity projection 3D-re constructions of the aorta and other arteries were constructed by the technologist on a separate work station. Automated exposure control and iterative reconstruction technique were employed. COMPARISON: Chest dated 10/22/2019 FINDINGS: The study is technically limited for evaluation of peripheral pulmonary arteries. No large central pulmonary emboli are identified. Study limited by motion artifact. Heart size normal. No sign ificant pleural or pericardial effusion. There is mediastinal and right hilar lymphadenopathy. There is patchy airspace disease in the right upper and lower lobes, most likely infectious. There are calc ified granulomas of the spleen. There are gallstones. Gallbladder is decompressed. There is moderate- severe thoracic spondylosis. There is atherosclerosis of the aorta and coronary arteries. No evidence for aneurysm. IMPRESSION: 1. No large central pulmonary embolism. Evaluation of peripheral pulmonary arteries limited by motion . 2: Patchy right upper and lower lobe airspace disease, most likely infectious. 3: Cholelithiasis. Reviewed, dictated and finalized at location A. IMPRESSION: 1. No large central pulmonary embolism. Evaluation of peripheral pulmonary nina caren limited by motion. 2: Patchy right upper and lower lobe airspace disease, most likely infectious. 3: Cholelithiasis.
--- NOTE | ~2019-10-22 | US_ITS ---
EXAMINATION: US venous doppler LE EXAM DATE: 10/23/2019 11:37 INDICATION: High d-dimer. COVID 19. Airspace disease on x-ray. TECHNIQUE: Multiple grayscale, color flow and Doppler images of the lower extremity deep venous syste ms bilaterally were obtained and reviewed. Comparison is made to prior examination from 02/05/2005. FINDINGS: Right side: The right common femoral, femoral and profunda veins demonstrate normal color flow, respi ratory variation, augmentation and compressibility. Compressibility, color flow confirmed within the right popliteal, posterior tibial, peroneal, and greater saphenous veins. Left side: The left common femoral, femoral and profunda veins demonstrate normal color flow, respira tory variation, augmentation and compressibility. Compressibility, color flow confirmed within the l eft popliteal, posterior tibial, peroneal, and greater saphenous veins. IMPRESSION: 1. No lower extremity deep venous thrombosis bilaterally. Reviewed, dictated and finalized at location A.
--- NOTE | 2019-10-22 02:01 | ECG_ITS ---
Measurements Intervals [place] Rate: 75 P: 37 PA: 159 QRS: 32 QRSD: 165 T: 46 QT: 432 QTc: 484 Interpretive Statements SINUS RHYTHM RIGHT BUNDLE BRANCH BLOCK BASELINE ARTIFACT- I, III, AVL, AVF, V1, V3-V6 ABNORMAL ECG Electronically Signed On 10-22-2019 7:00:06 CDT by Jah Ambrose D.O.
--- NOTE | 2019-10-22 02:26 | ED.GENADULT ---
HPI - General Adult General Chief complaint: Weakness Stated complaint: fall/ weakness Time Seen by Provider: 10/22/19 01:44 History of Present Illness HPI narrative: Patient is a 79-year-old male with history of diabetes who presents the ER with weakness. Patient reports he was at home when he just felt like he could not even get up at all. EMS came to evaluate him his blood sugar was 60. He received D10 and feels much better. Patient reports he is recently been treated for a UTI however he did not like the chalky taste of the antibiotic so he stopped taking the medication. Reports he also thinks medication may be making him feel like he is weak and falling. Of note patient reports his roommate he goes out and drinks alcohol regularly was tested for COVID-19 and recently came back positive. Patient is not having fever/chills/sweats/cough/runny nose/body aches. No loss of taste or smell. Related Data Home Medications Medication Instructions Recorded Confirmed metformin 500 mg tablet 2,000 mg PO HS 02/05/19 05/09/19 furosemide 40 mg tablet 40 mg PO .QOD tablet 06/28/19 06/28/19 ciprofloxacin HCl 10/22/19 10/22/19 Allergies Allergy/AdvReac Type Severity Reaction Status Date / Time No Known Allergies Allergy Verified 10/22/19 03:21 Review of Systems Review of Systems: All systems reviewed & are unremarkable except as noted in HPI and below Constitutional: Constitutional: Denies chills, Denies fever(s) and Reports weakness ENT: Denies nasal congestion and Denies sore throat Cardiovascular: Cardiovascular: Denies chest pain and Denies radiating jaw, neck or arm pain Respiratory: Respiratory: Denies cough, Denies dyspnea and Denies wheezing Gastrointestinal: Gastrointestinal: Denies abdominal pain, Denies nausea and Denies vomiting PMFSH Social History Social History Smoking status: Former smoker Smoking end date: 02/28/06 Alcohol intake: former Substance use: never Substance use type: does not use Gender identity (if verbalized by the patient): Male Spiritual care concerns: No Agree to blood products: Yes Exam Narrative: Exam Narrative: GENERAL: Well-appearing, well-nourished, and in no acute distress. HEAD: Normocephalic, atraumatic. EYES: PERRL and EOMI. CHEST: Clear to auscultation. No respiratory distress. HEART: Regular rate and rhythm. Normal peripheral pulses. ABDOMEN: Soft, nontender, nondistended. EXTREMITIES: Normal range of motion. No edema. SKIN: Warm, dry, no rash. NEURO: Alert and oriented x3. PSYCH: Normal mood and affect. Course Course Emergency Course: Admitted to the hospitalist service. Antibiotics ordered. COVID test pending. Vital Signs Vital signs: Vital Signs Temperature 98.3 F 10/22/19 01:48 Pulse Rate 73 10/22/19 01:48 Respiratory Rate 23 H 10/22/19 01:48 Blood Pressure 132/68 10/22/19 01:48 Pulse Oximetry 97 10/22/19 01:48 Temperature 98.3 F 10/22/19 01:48 Pulse Rate 68 10/22/19 05:17 Respiratory Rate 24 H 10/22/19 05:17 Blood Pressure 109/58 L 10/22/19 05:17 Pulse Oximetry 98 10/22/19 05:17 Medical Decision Making Vital Signs Vital Signs: Vital Signs Temperature 98.3 F 10/22/19 01:48 Pulse Rate 73 10/22/19 01:48 Respiratory Rate 23 H 10/22/19 01:48 Blood Pressure 132/68 10/22/19 01:48 Pulse Oximetry 97 10/22/19 01:48 Temperature 98.3 F 10/22/19 01:48 Pulse Rate 68 10/22/19 05:17 Respiratory Rate 24 H 10/22/19 05:17 Blood Pressure 109/58 L 10/22/19 05:17 Pulse Oximetry 98 10/22/19 05:17 Lab Data Result diagrams: 10/22/19 02:20 10/22/19 02:20 Labs: Lab Results 10/22/19 10/22/19 10/22/19 Range/Units 02:20 02:20 02:30 WBC 6.0 (4.5-10.0) K/mm3 RBC 3.74 L (4.6-6.20) M/mm3 Hgb 11.9 L (14.0-18.0) g/dL Hct 34.6 L (42.0-52.0) % MCV 92.5 (80-100) fl MCH 31.8 (
[2019-10-22 02:33] LABS: Basophils Percent Auto 0.2 % (0.2-1.2); Hematocrit 34.6 % (42.0-52.0); Hemoglobin 11.9 g/dL (14.0-18.0); Immature Granulocyte Absolute 0.02 K/mm3 (0.00-0.031); Immature Granulocyte Percent A 0.3 % (0-0.5); Immature Platelet Fraction Pct 2.8 % (0.9-11.2); Lymphocytes Absolute Auto 0.41 K/mm3 (0.9-3.2); Lymphocytes Percent Auto 6.8 % (18.3-44.2); Mean Corpuscular HGB Conc 34.4 g/dl (32-36); Mean Corpuscular Hemoglobin 31.8 pg (26-34); Mean Corpuscular Volume 92.5 fl (80-100); Mean Platelet Volume 9.9 fl (7.4-10.4); Monocytes Absolute Auto 0.5 K/mm3 (0.1-0.6); Neutrophils Absolute Auto 5.1 K/mm3 (1.3-6.7); Neutrophils Percent Auto 84.7 % (45.5-73.1); Platelet Count Result 155 k/mm3 (150-375); Red Blood Count 3.74 M/mm3 (4.6-6.20)
[2019-10-22 02:44] LABS: Alanine Aminotransferase 34 U/L (4-50); Albumin Level 3.6 g/dL (3.5-5.1); Alkaline Phosphatase 57 U/L (38-126); Anion Gap 10 mmol/L (8-16); Aspartate Amino Transferase 54 U/L (17-59); Bilirubin,Total 0.3 mg/dL (0.2-1.3); Blood Urea Nitrogen 19 mg/dL (9-20); Calcium 7.8 mg/dL (8.4-10.2); Carbon Dioxide 22 mmol/L (22-30); Chloride 98 mmol/L (98-107); Estimated CRCL calculation 54 ml/min; Estimated Glomerular Filt Rate > 60; Glucose 237 mg/dL (75-110); Potassium 3.8 mmol/L (3.4-5.0); Sodium 130 mmol/L (137-145)
[2019-10-22 02:56] LABS: Troponin I 0.036 ng/mL (0.000-0.034)
[2019-10-22] MEDS: ASPIRIN 81 MG CHEWABLE TABLET 324 MG PO (03:16)
[2019-10-22 03:28] LABS: Add Urine Microscopic? YES; Appearance Urine Clear (Clear); Bilirubin Urine Negative (Negative); Blood Urine Negative (Negative); Color Urine Yellow (Yellow); Glucose Urine UA 3+ mg/dL (Negative); Ketones Urine Trace mg/dL (Negative); Leukocyte Esterase Ur Negative LEU/UL (Negative); Mucus Urine Rare /lpf; Nitrate Urine Negative (Negative); Protein Urine Negative (Negative); RBC Urine 0-2 /hpf (0-2); Specific Grav Ur 1.009 (1.001-1.035); Squamous Epithelial Cell Urine Rare /hpf (Few); Urobilinogen Urine Negative mg/dL (<2.0); WBC Urine 0-3 /hpf
--- NOTE | 2019-10-22 06:28 | ADMIMU ---
This patient, Reagan Akins, was admitted to IMU status, and placed in Intensive Care Unit-1. Patient/family oriented to hospital policies and general routines including ID bracelet, bed and alarms, visiting hours, pain management, procedures, bathroom and other care routines, personal items, smoking policy, room service/diet, and visiting hours. Valuables list has been completed. Information on how to activate the Rapid Response Team has been discussed. Patient/Family are encouraged to report perceived risks to care and to ask questions if they do not understand what they are told or what they should do.
[2019-10-22 07:46] LABS: Troponin I 0.056 ng/mL (0.000-0.034)
[2019-10-22 08:15] LABS: Glucose Point of Care 47 (65-105)
[2019-10-22 08:56] LABS: Glucose Point of Care 102 (65-105)
--- NOTE | 2019-10-22 09:07 | PC.NURSE ---
patient blood sugar 47 with breakfast, gave two apple juices and told to eat breakfast, repeat sugar 102 gave two orange juices to patient. Called MD for hypoglycemic orders.
[2019-10-22 09:26] LABS: Troponin I 0.047 ng/mL (0.000-0.034)
[2019-10-22] MEDS: ATORVASTATIN 20 MG TABLET PO (11:25)
[2019-10-22] MEDS: lisinopriL 20 MG TABLET 40 MG PO (11:25)
[2019-10-22 11:40] LABS: Glucose Point of Care 127 (65-105)
[2019-10-22 12:40] LABS: SARS-CoV-2 RNA PCR Positive
--- NOTE | 2019-10-22 14:05 | PM.IMHP ---
H&P: HPI History of Present Illness Date/Time: 10/22/19 14:05 Chief complaint: elevated troponin, pneumonia, covid pui, Narrative: Reagan Akins is a 79 year old male with PMH of DM type 2, HTN and HL who presented to the hospital with weakness and a fall. He has been feeling like this for the last 3-4 days, he also refers lack of appetite, no nausea or vomiting, no diarrhea, no abdominal pain. He denies loss of smell or taste. He also denies syncope, no chest pain, no cough no SOB, no fever. Of note one of his roommate has tested positive for COVID 19. He reports he had been treated for a UTI but denies urinary symptoms at this time, he was noticed to be hypoglycemic in the ER. Currently he feels better. Review of Systems Review of Systems: All systems reviewed & are unremarkable except as noted in HPI and below PMFSH Family History Family History (Updated 10/22/19 @ 06:35 by Jake Alaniz RN) Father No problems noted. Mother Family history of cardiovascular disease Diabetes mellitus Breast cancer Social History Social History Smoking status: Former smoker Tobacco type: cigarettes Smoking end date: 02/28/06 Alcohol intake: never Substance use: never Substance use type: does not use Gender identity (if verbalized by the patient): Male Spiritual care concerns: No Agree to blood products: Yes Meds Home Medications and Allergies Home Medications Medication Instructions Recorded Confirmed Type metformin 500 mg tablet 2,000 mg PO HS 02/05/19 10/22/19 History lisinopril 40 mg tablet 40 mg PO DAILY #90 tablet 06/28/19 10/22/19 Rx atorvastatin 20 mg tablet 20 mg PO DAILY #90 tablet 09/27/19 10/22/19 Rx ciprofloxacin HCl 500 mg PO Q12H #14 tablet 10/18/19 10/22/19 Rx glipizide 5 mg PO BID 10/22/19 10/22/19 History Allergies Allergy/AdvReac Type Severity Reaction Status Date / Time No Known Allergies Allergy Verified 10/22/19 03:21 Vital Signs Vital Signs - 24 hr 10/22/19 01:48 10/22/19 01:58 10/22/19 02:31 Temperature 98.3 F Pulse Rate 73 74 72 Respiratory Rate 23 H 24 H Blood Pressure 132/68 118/62 Pulse Oximetry 97 96 10/22/19 03:20 10/22/19 05:17 10/22/19 06:36 Temperature Pulse Rate 77 68 62 Respiratory Rate 24 H 24 H 20 Blood Pressure 116/64 109/58 L Pulse Oximetry 99 98 97 10/22/19 08:00 10/22/19 08:08 10/22/19 10:00 Temperature 98.5 F Pulse Rate 64 79 76 Respiratory Rate 22 H 22 H Blood Pressure 114/74 Pulse Oximetry 96 97 10/22/19 12:00 10/22/19 14:00 Temperature 97.4 F L Pulse Rate 69 102 H Respiratory Rate 27 H Blood Pressure 137/69 Pulse Oximetry 98 Exam Const: General: no acute distress HENMT: Ears: TM's normal bilaterally Mouth: Yes moist mucous membranes Eyes: General: appearance normal, both eyes and all related structures Pupils: Equal, round and reactive pupils present Neck: Neck: supple and no JVD Resp: Effort & Inspection: normal respiratory effort Auscultation: wheezes Other: Mild diffuse wheezing, he is not using accessory muscles to breath, he is able to speak in full sentences. Cardio: Rate: regular rate Rhythm: regular rhythm Other: No tachycardia or bradycardia. GI: GI Palp: Yes Soft to palpation Percussion: Yes normal to percussion Other: No tenderness. Skin: General skin exam: no rashes or lesions noted Neuro: Cognition (Neuro): normal cognition Speech: normal speech Motor exam (neuro): 5/5 motor strength present throughout and Normal motor muscle tone present throughout Extrem: General: normal to inspection Psych: Affect: normal affect H&P: Results Labs Labs: Short CBC 10/22/19 Range/Units 02:20 WBC 6.0 (4.5-10.0) K/mm3 Hgb 11.9 L (14.0-18.0) g/dL Hct 34.6 L (42.0-52.0) % Plt Count 155 (150-375) k/mm3 BMP 10/22/19 02:20 Sodium 130 L Potassium 3.8 Chloride 98 Carbon Dioxide 22 BU
[2019-10-22 14:32] LABS: Hemoglobin A1C 7.2 % (<5.7)
[2019-10-22] MEDS: ENOXAPARIN 40 MG/0.4 ML SYRINGE SUB-Q (16:16)
[2019-10-22 16:25] LABS: Glucose Point of Care 297 (65-105)
[2019-10-22 17:45] LABS: Lactate Dehydrogenase 734 U/L (313-618)
[2019-10-22 17:49] LABS: CRP 7.6 mg/dL (<1.0)
[2019-10-22 18:09] LABS: Sodium Urine Random 87 meq/L
[2019-10-22] MEDS: ACETAMINOPHEN 325 MG TABLET 650 MG PO (20:26)
[2019-10-22 20:31] LABS: Glucose Point of Care 205 (65-105)
[2019-10-23] VITALS (9 sets, daily range): BP systolic 96–118; BP diastolic 51–75; PULSE 59–78; RESP 15–25; TEMP 36.8–36.9; O2SAT 93–97
[2019-10-23 03:34] LABS: Basophils Percent Auto 0.2 % (0.2-1.2); Eosinophils Percent Auto 0.2 % (0-4.4); Hematocrit 38.4 % (42.0-52.0); Hemoglobin 13.2 g/dL (14.0-18.0); Immature Granulocyte Absolute 0.04 K/mm3 (0.00-0.031); Immature Granulocyte Percent A 0.9 % (0-0.5); Lymphocytes Absolute Auto 0.72 K/mm3 (0.9-3.2); Mean Corpuscular HGB Conc 34.4 g/dl (32-36); Mean Corpuscular Hemoglobin 31.6 pg (26-34); Mean Corpuscular Volume 91.9 fl (80-100); Mean Platelet Volume 9.5 fl (7.4-10.4); Monocytes Absolute Auto 0.6 K/mm3 (0.1-0.6); Monocytes Percent Auto 13.8 % (2.6-8.5); Neutrophils Absolute Auto 3.1 K/mm3 (1.3-6.7); Neutrophils Percent Auto 68.9 % (45.5-73.1); Platelet Count Result 160 k/mm3 (150-375); Red Blood Count 4.18 M/mm3 (4.6-6.20); White Blood Count 4.5 K/mm3 (4.5-10.0)
[2019-10-23 03:48] LABS: Anion Gap 8 mmol/L (8-16); Blood Urea Nitrogen 14 mg/dL (9-20); Calcium 8.3 mg/dL (8.4-10.2); Carbon Dioxide 28 mmol/L (22-30); Chloride 96 mmol/L (98-107); Estimated CRCL calculation 58 ml/min; Estimated Glomerular Filt Rate > 60; Glucose 173 mg/dL (75-110); Potassium 4.6 mmol/L (3.4-5.0); Sodium 132 mmol/L (137-145)
[2019-10-23] MEDS: lisinopriL 20 MG TABLET 40 MG PO (09:17)
[2019-10-23] MEDS: ATORVASTATIN 20 MG TABLET PO (09:17)
[2019-10-23] MEDS: ENOXAPARIN 40 MG/0.4 ML SYRINGE SUB-Q ×2 (09:17→19:38)
[2019-10-23] MEDS: ASPIRIN 81 MG ENTERIC TABLET PO (09:17)
[2019-10-23] MEDS: INSULIN ASPART (*BKC) 100 UNITS/ML SUB-Q (12:33)
[2019-10-23 12:52] LABS: Glucose Point of Care 279 (65-105)
--- NOTE | 2019-10-23 13:25 | PM.IMPN ---
Progress Note: A&P Assessment and Plan (1) Hypoglycemia associated with diabetes: Code(s): E11.649 - Type 2 diabetes mellitus with hypoglycemia without coma Status: Acute Assessment and Plan: Doing better now, he is on glipizide which might not be the best drug given his age and might be the culprit for the hypoglycemia. Continue correctional scale Hb A1c is 7.2% (2) COVID-19: Code(s): U07.1 - COVID-19 Status: Acute Assessment and Plan: We will order inflammatory markers for prognostic purposes. No need for remdesivir or dexamethasone for now since he is not hypoxic and other than weakness he has no other symptoms. On high dose lovenox given elevated d dimer. Ct chest showed no evidence of central PE, lower extremity dopplers are pending. (3) Elevated troponin: Code(s): R79.89 - Other specified abnormal findings of blood chemistry Status: Acute Assessment and Plan: Denies chest pain, troponin is only mildly elevated and trending down. EKG without acute changes. (4) COPD with asthma: Code(s): J44.9 - Chronic obstructive pulmonary disease, unspecified Status: Acute Assessment and Plan: Not on an exacerbation. 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 Sodium getting better. Additional Plan VTE ppx with lovenox Family was updated on his condition over the phone. Subjective Date/time seen: He is anxious about going home, however he has not move around yet, still weak. He is not using supplemental oxygen as of now. 10/23/19 13:25 Review of Systems Review of Systems: All systems reviewed & are unremarkable except as noted in HPI and below Exam Const: General: comfortable and no acute distress Neck: Neck: supple and no JVD Resp: Auscultation: clear to auscultation bilaterally and diminished lung sounds Other: No wheezing or rales. Cardio: Rate: regular rate Rhythm: regular rhythm GI: Auscultation: normal bowel sounds Skin: General skin exam: no rashes or lesions noted Neuro: Cognition (Neuro): normal cognition Speech: normal speech Motor exam (neuro): Normal motor muscle tone present throughout Extrem: General: normal to inspection Objective Data Vital Signs Vital Signs: Vital Signs - 24 hr 10/22/19 14:00 10/22/19 16:00 10/22/19 20:00 Temperature 99.8 F H 100.2 F H Pulse Rate 102 H 87 102 H Respiratory Rate 28 H 24 H Blood Pressure 140/65 109/69 Pulse Oximetry 95 94 10/22/19 20:26 10/22/19 21:31 10/22/19 23:34 Temperature 100.2 F H 99.6 F Pulse Rate 62 Respiratory Rate 23 H Blood Pressure Pulse Oximetry 93 10/23/19 00:00 10/23/19 00:13 10/23/19 04:00 Temperature 98.5 F Pulse Rate 71 63 78 Respiratory Rate 22 H Blood Pressure 96/75 L Pulse Oximetry 97 10/23/19 08:00 Temperature 98.4 F Pulse Rate 59 L Respiratory Rate 24 H Blood Pressure 118/63 Pulse Oximetry 93 Intake/Output Intake/Output: Intake & Output 10/20/19 10/21/19 10/22/19 10/23/19 23:59 23:59 23:59 23:59 Intake Total 1360 890 Output Total 900 900 Balance 460 -10 Meds/Results Medications: Active Medications Generic Name Dose Route Start Last Admin Trade Name Freq PRN Reason Stop Dose Admin Acetaminophen 650 mg 10/22/19 05:13 10/22/19 20:26 Tylenol Tablet PO 650 mg Q4H PRN Administration Mild Pain (1-3) or Fever Hydrocodone Bitart/Acetaminophen 1 tab 10/22/19 05:13 [place] 5-325 Mg PO Q4H PRN Pain Rated 4-6 Aspirin 81 mg 10/23/19 09:00 10/23/19 09:17 Aspirin Ec PO 81 mg QAM ABI Administration Atorvastatin Calcium 20 mg 10/22/19 09:00 10/23/19 09:17 Lipitor PO 20 mg DAILY ABI Administration Dextrose 12.5 gm 10/22/19 09:05 Dextrose 50% Syringe IV PUSH PRN PRN Hypoglycemia Protocol De
--- NOTE | 2019-10-23 16:29 | PCSTNOTE ---
Please refer to the Bedside Swallow Evaluation in the EMR.
[2019-10-23 18:57] LABS: Glucose Point of Care 146 (65-105)
[2019-10-24] VITALS (7 sets, daily range): BP systolic 96–130; BP diastolic 49–61; PULSE 63–94; RESP 16–18; TEMP 36.6–37.4; O2SAT 90–98
--- NOTE | 2019-10-24 00:07 | PC.NURSE ---
Report given to Sabas DINH. Patient to 331. No further questions. Belongings and meds given.
[2019-10-24 07:17] LABS: Basophils Percent Auto 0.6 % (0.2-1.2); Eosinophils Absolute Auto 0.1 K/mm3 (0-0.3); Eosinophils Percent Auto 2.1 % (0-4.4); Hemoglobin 11.9 g/dL (14.0-18.0); Immature Granulocyte Absolute 0.06 K/mm3 (0.00-0.031); Immature Granulocyte Percent A 1.8 % (0-0.5); Lymphocytes Absolute Auto 0.67 K/mm3 (0.9-3.2); Mean Corpuscular Hemoglobin 30.9 pg (26-34); Mean Corpuscular Volume 90.9 fl (80-100); Mean Platelet Volume 9.5 fl (7.4-10.4); Monocytes Absolute Auto 0.6 K/mm3 (0.1-0.6); Monocytes Percent Auto 17.6 % (2.6-8.5); Neutrophils Absolute Auto 1.9 K/mm3 (1.3-6.7); Neutrophils Percent Auto 57.9 % (45.5-73.1); Platelet Count Result 169 k/mm3 (150-375); Red Blood Count 3.85 M/mm3 (4.6-6.20); Red Cell Distribution Width 12.7 % (11.5-14.5); White Blood Count 3.4 K/mm3 (4.5-10.0)
[2019-10-24 07:31] LABS: D Dimer 1.67 ug/mL (<0.48)
[2019-10-24 07:38] LABS: Potassium 4.5 mmol/L (3.4-5.0)
[2019-10-24 07:56] LABS: Anion Gap 7 mmol/L (8-16); Blood Urea Nitrogen 20 mg/dL (9-20); CRP 6.8 mg/dL (<1.0); Carbon Dioxide 27 mmol/L (22-30); Chloride 98 mmol/L (98-107); Estimated CRCL calculation 53 ml/min; Estimated Glomerular Filt Rate > 60; Glucose 167 mg/dL (75-110); Lactate Dehydrogenase 692 U/L (313-618); Sodium 132 mmol/L (137-145)
[2019-10-24 08:39] LABS: Glucose Point of Care 170 (65-105)
[2019-10-24] MEDS: ATORVASTATIN 20 MG TABLET PO (10:12)
[2019-10-24] MEDS: ASPIRIN 81 MG ENTERIC TABLET PO (10:12)
[2019-10-24] MEDS: lisinopriL 20 MG TABLET 40 MG PO (10:12)
[2019-10-24] MEDS: ENOXAPARIN 40 MG/0.4 ML SYRINGE SUB-Q (10:12)
--- NOTE | 2019-10-24 11:04 | PM.CNCAR ---
Assessment and Plan Additional Plan 79-year-old man with a trivial troponin elevation came into the hospital with a variety of symptoms generalized weakness found to be hypoglycemic. He has subsequently been found to have lee virus and is in isolation. There does not appear to be any need for a cardiology consult and exposing Chandu necessarily to the patient's infection therefore I am electing to not formally see him in consultation. There will be no charge is submitted for this chart review Joselito Bennett MD [facility] History of Present Illness History of Present Illness Consult date/time: 10/24/19 11:04 Reason For Visit: elevated troponin, pneumonia, covid pui, Narrative: This is a 79-year-old patient I was requested to see because of an elevated troponin level. The entire chart was reviewed as well as the electrocardiograms on the laboratory data. I elected not to see this patient as he is not having cardiac symptoms, there is no evidence of an acute coronary syndrome from what I am told and he has tested positive for Coronavirus. It is my desire to limit my exposure to patients with lee virus if exposure is not necessary for clinical treatment of this patient [facility] Family History Family History (Updated 10/22/19 @ 06:35 by Jake Alaniz RN) Father No problems noted. Mother Family history of cardiovascular disease Diabetes mellitus Breast cancer Social History Social History Smoking status: Former smoker Tobacco type: cigarettes Smoking end date: 02/28/06 Alcohol intake: never Substance use: never Substance use type: does not use Gender identity (if verbalized by the patient): Male Spiritual care concerns: No Agree to blood products: Yes Meds Home Medications and Allergies Home Medications Medication Instructions Recorded Confirmed Type metformin 500 mg tablet 2,000 mg PO HS 02/05/19 10/22/19 History lisinopril 40 mg tablet 40 mg PO DAILY #90 tablet 06/28/19 10/22/19 Rx atorvastatin 20 mg tablet 20 mg PO DAILY #90 tablet 09/27/19 10/22/19 Rx ciprofloxacin HCl 500 mg PO Q12H #14 tablet 10/18/19 10/22/19 Rx glipizide 5 mg PO BID 10/22/19 10/22/19 History cefdinir 300 mg PO Q12H #10 cap 10/24/19 Rx doxycycline hyclate 100 mg PO BID #10 cap 10/24/19 Rx enoxaparin 40 mg SUBCUT Q12HR #8 ml 10/24/19 Rx Allergies Allergy/AdvReac Type Severity Reaction Status Date / Time No Known Allergies Allergy Verified 10/22/19 03:21 Vital Signs Vital Signs - 24 hr 10/23/19 12:00 10/23/19 16:00 10/23/19 19:37 Temperature 36.8 C 36.9 C Pulse Rate 64 63 68 Respiratory Rate 25 H 18 Blood Pressure 101/51 L 113/56 L Pulse Oximetry 97 94 10/23/19 20:00 10/23/19 23:11 10/24/19 00:00 Temperature 36.7 C Pulse Rate 65 67 Respiratory Rate 22 H 15 18 Blood Pressure 130/61 Pulse Oximetry 97 98 10/24/19 04:00 10/24/19 08:00 Temperature 37.4 C 36.8 C Pulse Rate 72 63 Respiratory Rate 18 18 Blood Pressure 107/60 112/57 L Pulse Oximetry 91 92 Results Labs and Meds Result diagrams: 10/24/19 07:09 10/24/19 07:09 Lab results: Cardiac Enzymes 10/24/19 Range/Units 07:09 Lactate Dehydrogenase 692 H (313-618) U/L CBC 10/24/19 Range/Units 07:09 WBC 3.4 L (4.5-10.0) K/mm3 RBC 3.85 L (4.6-6.20) M/mm3 Hgb 11.9 L (14.0-18.0) g/dL Hct 35.0 L (42.0-52.0) % Plt Count 169 (150-375) k/mm3 Lymph # (Auto) 0.67 L (0.9-3.2) K/mm3 [place] # (Auto) 0.6 (0.1-0.6) K/mm3 Eos # (Auto) 0.1 (0-0.3) K/mm3 Baso # (Auto) 0.0 (0.0-0.1) K/mm3 Comprehensive Metabolic Panel 10/24/19 Range/Units 07:09 Sodium 132 L (137-145) mmol/L Potassium 4.5 (3.4-5.0) mmol/L Chloride 98 (98-107) mmol/L Carbon Dioxide 27 (22-30) mmol/L BUN 20 (9-20) mg/dL Creatinine 1.00 (0.7-1.3) mg/dL Glucose 167 H (75-110) mg/dL Calcium 8.0 L (8.4-10.2) mg/dL
[2019-10-24 12:44] LABS: Glucose Point of Care 216 (65-105)
[2019-10-24] MEDS: INSULIN ASPART (*BKC) 100 UNITS/ML SUB-Q (13:37)
--- NOTE | 2019-10-24 14:28 | PCRCNOTE ---
HOME O2 EVAL COMPLETE, NO REQUIREMENTS
--- NOTE | 2019-10-24 15:51 | PM.DS ---
DS: Admitting Diagnosis Admitting Diagnosis Admitting Diagnosis: elevated troponin, pneumonia, covid pui, DS: Discharge Diagnosis Discharge Diagnosis (1) COVID-19: Code(s): U07.1 - COVID-19 Status: Acute (2) Hypoglycemia associated with diabetes: Code(s): E11.649 - Type 2 diabetes mellitus with hypoglycemia without coma Status: Acute (3) Hyponatremia: Code(s): E87.1 - Hypo-osmolality and hyponatremia Status: Acute (4) Pneumonia: Code(s): J18.9 - Pneumonia, unspecified organism Status: Acute (5) Elevated troponin: Code(s): R79.89 - Other specified abnormal findings of blood chemistry Status: Acute DS: Summary Hospital Course Reason for hospitalization: Weakness Hospital Course: 79 yo who presented to the hospital with weakness and was found to be hypoglycemic his glucose was 60. He also has been complaining of lack of appetite, he was found to be positive for COVID 19. He was never hypoxic, his oxygen saturation remained above 94% most of the time. He is very anxious about going home and refused to stay longer I explained to him that even though his symptoms are not severe his cxr still showing significant infiltrates and his symptoms might worsen overtime. He was advised to come back to the hospital if that happens, he verbalized understanding. He is going on cefdinir and doxycyclin for possible concomitant bacterial PNA. He will also get high dose prophylaxis of lovenox 40 mg BID since his d dimer was above 2.5. He had ct of the chest and lower extremity dopplers and both were negative for PE or DVT respectively. For the hypoglycemia he was advised to stop the glipizide at least until he follows up with his PCP, he should remain on metformin. He had a home oxygen assessment before and he does not require O2, he is being discharged with home health for PT. He had a mildly elevated troponin on admission that might be due to demand ischemia secondary to COVID or hypoglycemia, his troponin was trending down, never had chest pain and his EKG did not show acute changes. Status at Discharge Overall status at discharge: patient is back to baseline Time Spent with Patient Time attestation: Total time spent providing and/or coordinating discharge services: Time spent: Greater than 30 minutes Exam Const: General: comfortable and no acute distress Neck: Neck: supple and no JVD Resp: Effort & Inspection: normal respiratory effort Auscultation: crackles, rhonchi and diminished lung sounds Cardio: Rate: regular rate Rhythm: regular rhythm Other: No tachycardia or bradycardia. GI: GI Palp: Yes Soft to palpation Neuro: Motor exam (neuro): 5/5 motor strength present throughout and Normal motor muscle tone present throughout Extrem: General: normal to inspection DS: Data Data Completed and Pending Labs on day of discharge: Labs from last 24 hours 10/24/19 10/24/19 10/24/19 12:24 07:57 07:09 WBC 3.4 L RBC 3.85 L Hgb 11.9 L Hct 35.0 L MCV 90.9 MCH 30.9 MCHC 34.0 RDW 12.7 Plt Count 169 MPV 9.5 Immature Gran % (Auto) 1.8 H Neut % (Auto) 57.9 Lymph % (Auto) 20.0 Stokes % (Auto) 17.6 H Eos % (Auto) 2.1 Baso % (Auto) 0.6 Lymph # (Auto) 0.67 L Stokes # (Auto) 0.6 Eos # (Auto) 0.1 Baso # (Auto) 0.0 Abs Immat Gran (auto) 0.06 H Absolute Neuts (auto) 1.9 Absolute Nucleated RBC 0.0 Nucleated RBC % 0.0 D-Dimer Sodium Potassium Chloride Carbon Dioxide Anion Gap BUN Creatinine Estim Creat Clear Calc Estimated GFR Glucose POC Capillary Glucose 216 H 170 H Calcium Ferritin Lactate Dehydrogenase C-Reactive Protein 10/24/19 10/24/19 10/24/19 07:09 07:09 07:09 WBC RBC Hgb Hct MCV MCH MCHC RDW Plt Count MPV Immature Gran % (Auto) Neut % (Auto) Lymph % (Auto) Stokes % (Auto) Eos % (Auto)
[2019-10-27 05:48] LABS: Osmolality, Urine 478 mOsm/kg (50-1200)
== END 2019-10-24 16:51 | disposition home health service (06) | DRG 637 ==
LOC: ANHED 01:47 → ANHICU 05:45 → ANH3MEDSUR 10-24 14:01 → ANHICU 10-26 09:50
PROVIDERS: Admitting Provider Internal Medicine; Emergency Provider Emergency Medicine; PCP Family Medicine; Visit Provider Hospitalist
DX: E11.649 Type 2 diabetes mellitus with hypoglycemia without coma (principal); U07.1 COVID-19; J15.9 Unspecified bacterial pneumonia; I24.8 Other forms of acute ischemic heart disease; E22.2 Syndrome of inappropriate secretion of antidiuretic hormone; T38.3X5A Adverse effect of insulin and oral hypoglycemic [antidiabetic] drugs, initial encounter; J44.9 Chronic obstructive pulmonary disease, unspecified; Z87.891 Personal history of nicotine dependence
CPT/HCPCS: 36415; 71045; 71275; 80048; 80053; 81001; 82728; 83036; 83615; 83930; 83935; 84300; 84484; 85025; 85055; 85380; 86140; 87635; 92610; 93005; 93970; 94618; 96365; 96367; 96375; 97116; 97161; 97165; 99285; A9270; C9803; G0378; J0456; J0696; J1650; J1815; Q9967; U0003

== ENCOUNTER 2020-05-01 10:52 | Outpatient (CLI) | payer MEDICARE, SELFPAY | END 2020-05-01 10:53 | disposition home or self-care (01) | LOC: ANHCOVIDVC 10:52 | PROVIDERS: PCP Family Medicine | DX: Z23 Encounter for immunization (principal) | CPT/HCPCS: 0001A; 91300 ==

== ENCOUNTER 2020-05-22 10:24 | Outpatient (CLI) | payer MEDICARE, SELFPAY | END 2020-05-22 10:25 | disposition home or self-care (01) | LOC: ANHCOVIDVC 10:24 | PROVIDERS: PCP Family Medicine | DX: Z23 Encounter for immunization (principal) | CPT/HCPCS: 0002A; 91300 ==

== ENCOUNTER 2020-07-26 10:20 | Emergency (ER) | payer MEDICARE, SELFPAY ==
[2020-07-26 10:28] VITALS: BP 137/62; PULSE 68; RESP 20; TEMP 36.7; O2SAT 98
--- NOTE | 2020-07-26 10:46 | ED.SKABFB ---
HPI - Skin/Abscess/Foreign Bdy General Chief complaint: Skin/Abscess/Foreign Body Stated complaint: Ear Pain Source: patient and RN notes reviewed Limitations: no limitations History of Present Illness HPI narrative: The patient, on several medications, presents with ear foreign body. Patient states he wears a hearing aid and the tip/plug/dome came apart and was retained in his ear last night. 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 He complains of mild foreign body sensation without fever, discharge, drainage, swelling; symptoms are mild worse with palpation Related Data Home Medications Medication Instructions Recorded Confirmed famotidine 20 mg tablet 20 mg PO BID tablet 04/24/20 06/26/20 glipizide 10 mg tablet 10 mg PO DAILY 06/26/20 06/26/20 Allergies Allergy/AdvReac Type Severity Reaction Status Date / Time sitagliptin [From Febuv] AdvReac urinary Verified 06/26/20 13:20 retention Review of Systems Review of Systems: Narrative: General/Constitutional: No weight loss,fever Eyes: N0: Redness,discharge Ears/Nose/Throat: No: Epistaxis,ear discharge Respiratory: Denies: Hemoptysis Gastrointestinal: No Vomiting, Bleeding-rectal Skin: No Lumps, eruption Neurologic: No Focal Weakness,Sz Hematologic: Denies: Petechiae/Purpura Psychiatric: No: Suicida ideationl All Other Systems: Reviewed and Negative [facility] Past Medical History Medical History (Updated 07/26/20 @ 10:48 by Anders Finch MD) CHF (congestive heart failure) Chronic GERD COPD with asthma Dyslipidemia Type 2 diabetes mellitus with microalbuminuria, without long-term current use of insulin Surgical History Surgical History H/O bilateral hip replacements H/O cervical spinal arthrodesis H/O repair of rotator cuff bilaterally Family History Family History Father No problems noted. Mother Family history of cardiovascular disease Diabetes mellitus Breast cancer Social History Social History Smoking status: Former smoker Tobacco type: cigarettes Second hand tobacco smoke exposure: No Smoking end date: 02/28/06 Alcohol intake: never Substance use: never Substance use type: does not use Gender identity (if verbalized by the patient): Male Spiritual care concerns: No Agree to blood products: Yes Comments At time of signature, agree with nursing past medical, surgical, social and family history. There is no relevant family history pertinent to the presenting complaint Exam Narrative: Exam Narrative: General Appearance: Well appearing, Well nourished, No distress EYE: PERRLA EOMI (lens normal), Ears: Left EAC with plastic foreign body , external ear normal, Auditory canal normal Nose: Normal nose, Nares clear Mouth/Throat: Normal appearing, Normal lips Neck: Supple, No adenopathy Respiratory: Airway patent, No respiratory distress Skin: Warm, Dry Neurological: A&O x3, CN II-X intact Psychiatric: Normal mood, Normal affect Course Course Emergency Course: Ear FB Removal Left Ear: Ear FB Removal Date: 07/26/20 Technique: Used forceps only TM Examination: TM(s) intact, normal appearance Ear Canal Exam: atraumatic Patient Tolerated Procedure: well Complications: no problems Vital Signs Vital signs: Vital Signs Temperature 98.0 F 07/26/20 10:28 Pulse Rate 68 07/26/20 10:28 Respiratory Rate 20 07/26/20 10:28 Blood Pressure 137/62 07/26/20 10:28 Pulse Oximetry 98 07/26/20 10:28 Temperature 98.0 F 07/26/20 10:28 Pulse Rate 68 07/26/20 10:28 Respiratory Rate 20 07/26/20 10:28 Blood Pressure 137/62 07/26/20 10:28 Pulse Oximetry 98 07/26/20 10:28 Discharge Plan Discharge Clinical Impression: Foreign body in left
== END 2020-07-26 11:00 | disposition home or self-care (01) ==
PROVIDERS: Emergency Provider Emergency Medicine
DX: T16.2XXA Foreign body in left ear, initial encounter (principal); Z87.891 Personal history of nicotine dependence; Z96.643 Presence of artificial hip joint, bilateral; I11.0 Hypertensive heart disease with heart failure; I50.9 Heart failure, unspecified; K21.9 Gastro-esophageal reflux disease without esophagitis; J44.9 Chronic obstructive pulmonary disease, unspecified; E78.5 Hyperlipidemia, unspecified; E11.9 Type 2 diabetes mellitus without complications; Z79.84 Long term (current) use of oral hypoglycemic drugs
CPT/HCPCS: 69200; 99213; G0463

== ENCOUNTER 2020-11-07 10:34 | Emergency (ER) | payer MEDICARE, SELFPAY ==
[2020-11-07 10:42] VITALS: BP 115/68; PULSE 56; RESP 16; TEMP 36.3; O2SAT 98
--- NOTE | 2020-11-07 10:58 | ED.EAR ---
HPI - Ear Problem General Chief complaint: Ear Stated complaint: cannot hear out of right ear Time Seen by Provider: 11/07/20 10:58 Source: patient and RN notes reviewed Mode of arrival: ambulatory Limitations: no limitations History of Present Illness HPI Narrative: 80-year-old male presents to the [facility] with decreased hearing of the right ear. Patient states this been going on for several months. Try to make an appointment with his primary but states he cannot be seen until the of this month. Patient states that he just lost his and now wants to get his hearing checked. Related Data Home Medications Medication Instructions Recorded Confirmed famotidine 20 mg tablet 20 mg PO BID tablet 04/24/20 11/07/20 Allergies Allergy/AdvReac Type Severity Reaction Status Date / Time sitagliptin [From ] AdvReac urinary Verified 11/07/20 11:00 retention Review of Systems Review of Systems: All systems reviewed & are unremarkable except as noted in HPI and below Constitutional: Constitutional: Reports no additional constitutional complaints, Denies chills and Denies fever(s) Eyes: Eyes: Reports no additional eye complaints ENT: Comments: Right ear pressure with decreased hearing for 2 to 3 months Cardiovascular: Cardiovascular: Reports no additional cardiovascular complaints and Denies chest pain Respiratory: Respiratory: Reports no additional respiratory complaints, Denies cough and Denies dyspnea Gastrointestinal: Gastrointestinal: Reports no additional gastrointestinal complaints Musculoskeletal: Musculoskeletal: Reports no additional musculoskeletal complaints Integumentary/Breasts: Skin/Breast: Reports system reviewed and no additional complaints, except as docu Neurologic: Reports system reviewed and no additional complaints, except as documented Psychiatric: Psychiatric: Reports no additional psychiatric complaints Allergic/Immunologic: Allergic/Immunologic: Reports no additional allergic/immunologic complaints [facility] Past Medical History Medical History (Updated 11/07/20 @ 11:05 by Ora Tamez) CHF (congestive heart failure) Chronic GERD COPD with asthma Dyslipidemia Type 2 diabetes mellitus with microalbuminuria, without long-term current use of insulin Surgical History Surgical History H/O bilateral hip replacements H/O cervical spinal arthrodesis H/O repair of rotator cuff bilaterally Family History Family History Father No problems noted. Mother Family history of cardiovascular disease Diabetes mellitus Breast cancer Social History Social History Smoking status: Former smoker Tobacco type: cigarettes Second hand tobacco smoke exposure: No Smoking end date: 02/28/06 Alcohol intake: never Substance use: never Substance use type: does not use Gender identity (if verbalized by the patient): Male Spiritual care concerns: No Agree to blood products: Yes Comments At the time of my signature, I reviewed and agree with the nursing past medical, surgical, social, and family history. There is no relevant family history pertinent to the patient complaint. Exam Const: General: healthy appearing, no acute distress and alert Nutritional Appearance: well nourished Orientation/consciousness: patient oriented x3 Limitations: no limitations HENMT: Head: normal to inspection Ears: external ears normal, TM's normal bilaterally and EAC's normal Eyes: Conjunctivae: conjunctivae normal Pupils: Equal, round and reactive pupils present Neck: Neck: normal visual inspection, no lymphadenopathy and no meningeal signs Chest: Chest palpation & inspection: normal inspection of the chest Resp: Effort & Inspection: normal respiratory effort Auscultation: clear to auscultation bilaterally Cardio: Rate: r
== END 2020-11-07 11:09 | disposition home or self-care (01) ==
PROVIDERS: Emergency Provider Nurse Practitioner; PCP Family Medicine
DX: H92.01 Otalgia, right ear (principal); H91.91 Unspecified hearing loss, right ear; Z87.891 Personal history of nicotine dependence; I50.9 Heart failure, unspecified; K21.9 Gastro-esophageal reflux disease without esophagitis; J44.9 Chronic obstructive pulmonary disease, unspecified; E78.5 Hyperlipidemia, unspecified; E11.9 Type 2 diabetes mellitus without complications; Z98.1 Arthrodesis status; Z96.643 Presence of artificial hip joint, bilateral
CPT/HCPCS: 99211; G0463